=== PATIENT | male | born 1965 ===

== ENCOUNTER 2022-07-20 05:29 | Day surgery (SDC) | payer BC ==
[2022-07-19 10:07] LABS: BASOPHILS % (AUTO) 0.5 % (0-1); EOSINOPHILS # (AUTO) 0.1 X10'3 (0-0.9); EOSINOPHILS % (AUTO) 1.4 % (0-6); LYMPHOCYTES # (AUTO) 1.5 X10'3 (1.1-4.8); MEAN CORPUSCULAR HEMOGLOBIN 29.6 PG (27.0-31.0); MEAN PLATELET VOLUME 10.7 FL (7.4-10.4); MONOCYTES # (AUTO) 0.5 X10'3 (0-0.9); NEUTROPHILS # (AUTO) 4.4 X10'3 (1.8-7.7); NEUTROPHILS % (AUTO) 67.1 % (42-75); PRE OP HEMATOCRIT 51.4 % (42.0-52.0); PRE OP HEMOGLOBIN 17.5 g/dL (14.0-17.9); PRE OP PLATELET COUNT 187 X10'3 (140-440); RED BLOOD COUNT 5.91 X10'6 (4.70-6.10); RED CELL DISTRIBUTION WIDTH 13.4 % (11.5-14.5)
[2022-07-19 10:27] LABS: ALBUMIN 4.3 G/DL (3.4-5.0); ALBUMIN/GLOBULIN RATIO 1.4 (1.1-1.5); ALKALINE PHOSPHATASE 68 IU/L (46-116); BLOOD UREA NITROGEN 16 MG/DL (7-18); BUN/CREATININE RATIO 14.3 (10.0-20.0); CALCIUM 9.3 MG/DL (8.5-10.1); CHLORIDE 104 MMOL/L (99-107); CREATININE 1.12 MG/DL (0.60-1.10); PRE OP ALT 34 U/L (30-65); PRE OP ANION GAP 8 (8-16); PRE OP AST 23 U/L (10-37); PRE OP BILIRUB, TOTAL 0.6 MG/DL (0.0-1.0); PRE OP GLUCOSE 97 MG/DL (70-104); PRE OP POTASSIUM 4.2 MMOL/L (3.4-5.1); PRE OP SODIUM 141 MMOL/L (135-145); TOTAL CARBON DIOXIDE 28.7 MMOL/L (24-32); TOTAL PROTEIN 7.3 G/DL (6.4-8.2); eGFR 68 ML/MIN
[2022-07-19 10:37] LABS: LARGE PLATELETS FEW; PLATELET ESTIMATE NORMAL
[~2022-07-20] VITALS: Ht 193 cm; Wt 111.5 kg
[2022-07-20] VITALS (14 sets, daily range): BP systolic 73–115; BP diastolic 47–78
[~2022-07-20 05:29] MED LIST: NO HOME MEDS; ringers solution, lacted 1,000 ML IV SCH
[2022-07-20] MEDS ORDERED: INDOCYANINE GREEN 25 MG/10 ML VIAL IV ONE (05:30)
[2022-07-20] MEDS ORDERED: famotidine 20mg tablet PO ONE (05:30)
[2022-07-20] MEDS ORDERED: LIDOcaine 1% 30ml preserv. free vial ONE ×2 (06:44→07:45)
[2022-07-20] MEDS ORDERED: BUPIVAcaine/PF 2.5 mg/ml (0.25%) 30ml vial ONE ×2 (06:44→07:45)
[2022-07-20] MEDS ORDERED: midazolam 1 mg/ML 2ml injection ONE (07:19)
[2022-07-20] MEDS ORDERED: fentaNYL/PF 50MCG/1 ML 2ML syringe ONE (07:19)
[2022-07-20] MEDS ORDERED: acetaminophen 1,000mg/100ml IV 100 ML IV ONE (07:20)
[2022-07-20] MEDS ORDERED: LIDOcaine 2% (20mg/ml) 5ml vial ONE (07:21)
[2022-07-20] MEDS ORDERED: dexamethasone sod phosphate 4mg/ml inj. ONE (07:21)
[2022-07-20] MEDS ORDERED: propofol inj 20 ML IV ONE (07:21)
[2022-07-20] MEDS ORDERED: neostigmine methylsulfate 1 MG/ML 10ml vial ONE (07:21)
[2022-07-20] MEDS ORDERED: rocuronium 10mg/ml inj IV ONE (07:22)
[2022-07-20] MEDS ORDERED: desflurane 240ml liquid inh. IH ONE (07:22)
[2022-07-20] MEDS ORDERED: ondansetron/PF 4mg/2ml inj ONE (07:22)
[2022-07-20] MEDS ORDERED: glycopyrrolate 0.2mg/ml inj ONE (07:22)
[2022-07-20] MEDS ORDERED: dexmedetomidine 200mcg/2ml inj. IV ONE (07:24)
[2022-07-20] MEDS ORDERED: ceFAZolin 1000mg inj ONE ×2 (07:25→07:26)
[2022-07-20] MEDS ORDERED: HYDROmorphone/PF 0.2 MG/ML SYRINGE IV PRN ×2 (07:50)
[2022-07-20] MEDS ORDERED: meperidine/PF 25mg/ml syringe IV PRN ×2 (07:50)
[2022-07-20] MEDS ORDERED: hydrALAZINE 20mg/ml inj. IV PRN (07:50)
[2022-07-20] MEDS ORDERED: ondansetron/PF 4mg/2ml inj IV PRN (07:50)
[2022-07-20] MEDS ORDERED: labetalol 20mg/4ml (5mg/ml) syringe IV PRN (07:50)
[2022-07-20] MEDS ORDERED: ringers solution, lacted 1,000 ML IV SCH (07:50)
[2022-07-20] MEDS ORDERED: meperidine/PF 50mg/ml syringe ONE ×2 (07:52)
[2022-07-20] MEDS ORDERED: labetalol 20mg/4ml (5mg/ml) syringe IV ONE (07:58)
[2022-07-20] MEDS ORDERED: hydrALAZINE 20mg/ml inj. IV ONE (08:07)
--- NOTE | 2022-07-20 08:59 | NUR ---
Received from OR via [facility] TO [facility], accompanied by Anesthesiologist DR LAWRENCE and report given by Anesthesiolgist. PT PRESENTS WITH 20G RIGHT FOREARM, ABD DRESSING CDI, SPO2 98 6L MASK, LR RUNNING AT 100MLS/HR, VSS. Addendum: 07/20/22 at 0935 by Annelise Parkinson RN, RN Amended: Links added.
[2022-07-20] MEDS ORDERED: oxyCODONE/APAP 5-325mg tablet PO PRN (09:20)
--- NOTE | 2022-07-20 11:14 | NUR ---
DC HOME: ALL DISCHARGE CRITERIA HAS BEEN MET. VSS, PAIN AT TOLERABLE LEVEL. ABLE TO SAFELY AMBULATE AND TRANSFER SELF. IV TAKEN OUT WITHOUT ANY COMPLICATIONS. ALL DISCHARGE INSTRUCTIONS COVERED WITH PATIENT AND ALL QUESTIONS ANSWERED. PATIENT TAKEN OUT VIA WHEELCHAIR TO PERSONAL VEHICLE WHERE FAMILY, CINTHYA DROVE PATIENT HOME. Addendum: 07/20/22 at 1155 by Annelise Parkinson RN, RN Amended: Links added.
== END 2022-07-20 11:14 | disposition home or self-care (01) ==
LOC: PAS 05:29
PROVIDERS: ATTEND Surgery
DX: K80.10 Calculus of gallbladder with chronic cholecystitis without obstruction (principal); Z98.890 Other specified postprocedural states; Z90.3 Acquired absence of stomach [part of]; Z79.899 Other long term (current) drug therapy; Z82.61 Family history of arthritis; Z82.49 Family history of ischemic heart disease and other diseases of the circulatory system
CPT/HCPCS: 36415; 47563; 80053; 82948; 85025; 93005; J0131; J0360; J0690; J1100; J2175; J2250; J2405; J2704; J2710; J3010; J3490; J7030; J7120; S2900; Z7506; Z7508; Z7512; 85008; A4215; A4618; A7000